=== PATIENT | female | born 1980 | race Caucasian/White ===

== ENCOUNTER 2017-04-26 20:24 | Inpatient (IN) | payer OTHER ==
[~2017-04-26] VITALS: Ht 152.4 cm; Wt 94.0 kg
[~2017-04-26 20:24] MED LIST: AQUA100OI TOP; BUPR75TA5 PO; CYCL10TA PO; CYCL20CR TD; CYCL5TAB PO; CYMB60CA3 PO; FLEX10TA2 PO; IBUP80TA PO; KEFL250C11 PO; LYRI150C PO; LYRI75CA PO; OMEP20CA3 PO; POLY2.5S OP; PRIL20CA PO; TIZA4CAP PO; TIZA4TAB3 PO; TOPI25TA10 PO; TYLE650T25 PO; ULTR50TA PO; VENL75TA2 PO; VOLT1GEL15 TD; VOLT1GEL2 TD; ZIPS25CA PO; ZOLO50TA PO
[2017-04-26 22:58] LABS: BASO % 0.2 % (0.0-1.0); EOS # 0.2 K/mm3 (0.0-0.50); EOS % 1.5 % (0.0-3.0); LARGE UNSTAINED CELL # 0.2 K/mm3 (0.0-0.4); LARGE UNSTAINED CELL % 1.1 % (0.0-4.0); LYMPH # 1.8 K/mm3 (1.5-4.5); LYMPH % 10.8 % (24.0-44.0); MEAN CORPUSCULAR HEMOGLOBIN 28.5 pg (27.0-33.0); MEAN CORPUSCULAR HGB CONC 34.3 g/dl (32.0-36.5); MEAN CORPUSCULAR VOLUME 83.2 fl (80.0-96.0); MONO # 0.9 K/mm3 (0.0-0.8); MONO % 5.9 % (0.0-5.0); NEUTROPHILS # 11.7 K/mm3 (1.8-7.7); NEUTROPHILS % 80.5 % (36.0-66.0); PLATELET COUNT, AUTOMATED 306 k/mm3 (150-450); RED CELL DISTRIBUTION WIDTH 13.5 % (11.5-14.5); WHITE BLOOD COUNT 14.6 K/mm3 (4.0-10.0)
[2017-04-26 23:12] LABS: CONTROL LINE HCG INT CTR LINE PRESENT
[2017-04-26 23:16] LABS: ANION GAP 7 MEQ/L (8-16); BLOOD UREA NITROGEN 10 MG/DL (7-18); CALCIUM LEVEL 8.8 MG/DL (8.5-10.1); CARBON DIOXIDE LEVEL 27 MEQ/L (21-32); CHLORIDE LEVEL 107 MEQ/L (98-107); CREATININE FOR GFR 0.94 MG/DL (0.55-1.02); GLOMERULAR FILTRATION RATE > 60.0 (>60); GLUCOSE, FASTING 119 MG/DL (70-105); POTASSIUM SERUM 3.2 MEQ/L (3.5-5.1); SODIUM LEVEL 141 MEQ/L (136-145)
[2017-04-27] MEDS ORDERED: ceFAZolin SOD 1 GM in D5W MINI-BAG PLUS 50 ML IV ONE (00:30)
[2017-04-27] MEDS ORDERED: metroNIDAZOLE 500 MG in APPROPRIATE DILUENT 1 EA IV ONE (00:30)
[2017-04-27] MEDS ORDERED: VENL100T PO (01:07)
[2017-04-27] MEDS ORDERED: VITA1CAP40 PO (01:08)
[2017-04-27] MEDS ORDERED: MORPHINE 2 MG/ML 1ML SYRINGE IV PRN (02:15)
[2017-04-27] MEDS ORDERED: ACETAMINOPHEN TAB 650MG DOSE (2X325MG) PO PRN (02:15)
[2017-04-27 03:00] VITALS: BP 140/79
[2017-04-27] MEDS ORDERED: VANCOMYCIN HCL 1,000 MG, VIAL MATE ADAPTER 1 EACH in D5W 250 ML IV ONE (03:00)
[2017-04-27] MEDS ORDERED: POTASSIUM CHLORIDE 10 MEQ SR TABLET PO ONE ×2 (03:15→10:00)
[2017-04-27] MEDS: NS 1,000 ML IV SCH ×3 (03:21→22:46)
--- NOTE | 2017-04-27 03:49 | HPEPDOC ---
General Date of Admission Apr 27, 2017 at 02:03 Primary Care Physician: SAÚL RAMOS PA-C Attending Physician: DMITRIY PEÑALOZA MD Chief Complaint The patient is a 37-year-old female admitted with a reason for visit of Sialadenitis. Source: Patient Exam Limitations: No limitations Timing/Duration: 24 hours Severity: Severe Associated Symptoms: Nausea, Shortness of breath History of Present Illness 37-year-old female, history of depression, fibromyalgia and no other past medical or surgical history presented with facial swelling. This morning, patient had acute onset orofacial swelling. She denies any trauma sick contact. Swelling is present at around Mouth and lower part of the nose within past 6-7 hours and swelling in the angle of the neck Home Medications Scheduled Cyclobenzaprine HCl (Cyclobenzaprine HCl) 10 Mg Tab, 10 MG PO DAILY, (Reported) Ergocalciferol (Vitamin D) 50,000 Unit Cap, 50,000 UNIT PO ASDIRECTED, (Reported ) W - Wednesday Afternoons Omeprazole (Omeprazole) 20 Mg Cap, 20 MG PO BID, (Reported) Pregabalin (Lyrica) 150 Mg Cap, 150 MG PO TID, (Reported) Venlafaxine Hydrochloride (Venlafaxine HCl) 100 Mg Tab, 100 MG PO BID, (Reported ) Allergies Coded Allergies: No Known Drug Allergy (Verified Allergy, Unknown, 02/05/13) Past Medical History Medical History Depression,. Fibromyalgia Surgical History None Family History Significant Family History: No pertinent family hx Social History * Smoker: Denies Alcohol: Denies Drugs: denies Recent Travel/Sick Contacts: Denies: Recent travel, Recent sick contacts Psychosocial History: Depression Review of Symptoms Constitutional: Denies: Chills, Fever, Night Sweats Eyes: Denies: Pain, Vision change ENT: Reports: Sinus Congestion, Post Nasal Drip, Other Symptoms (Facial swelling along with purulent discharge), Denies: Head Aches, Ear Pain, Dysphagia Skin: Denies: Rash, Lesions, Breakdown Pulmonary: Reports: Cough, Denies: Dyspnea Cardiovascular: Denies: Chest Pain, Palpitations, Orthopnea, Paroxysmal Noc. Dyspnea, Lt Headedness Gastrointestinal: Denies: Nausea, Vomiting, Abdominal Pain, Diarrhea Genitourinary: Denies: Dysuria, Frequency, Incontinence, Retention Hematologic: Denies: Bruising, Bleeding Excessively Musculoskeletal: Denies: Neck Pain, Back Pain, Joint Pain, Muscle Pain, Spasms Neurological: Denies: Weakness, Numbness, Change in speech, Confusion Psych: Reports: Mood Normal, Denies: Depression, Memory Issues Physical Examination General Exam: Positive: Alert Eye Exam: Positive: PERRLA, Conjunctiva & lids normal, EOMI, Negative: Sclera icteric ENT Exam: Positive: Atraumatic, Mucous membr. moist/pink, Other ENT (facial swelling parotid gland enlargement . Purulent discharge) Neck Exam: Positive: Supple, Negative: JVD, thyromegaly Chest Exam: Positive: Clear to auscultation, Normal air movement Heart Exam: Positive: Rate Normal, Regular Rhythm, Normal S1, Normal S2, Negative: Murmurs, Rubs Telemetry: Positive: No significant arrhythmia Abdomen Exam: Positive: Normal bowel sounds, Soft, Negative: Tenderness, Hepatospenomegaly Extremity Exam: Positive: Normal pulses, Negative: Clubbing, Cyanosis, Edema Skin Exam: Positive: Nl turgor and temperature, Negative: Breakdown, Lesion Neuro Exam: Positive: Cranial Nerves 3-12 NL, Reflexes 2+ Psych Exam: Positive: Mental status NL, Mood NL, Oriented x 3 Vital Signs Vital Signs Date Time Temp Pulse Resp B/P (MAP) Pulse Ox O2 Delivery O2 Flow Rate FiO2 04/27/17 02:31 98.9 100 20 130/73 (92) 100 Laboratory Data Labs 24H Laboratory Tests 2 04/26/17 22:48: White Blood Count 14.6H, Red Blood Count 4.60, Hemoglobin 13.1, Hematocrit 38.2 , Mean Corpuscular Volume 83.2, Mean Corpuscular Hemoglobin 28.5, Mean Corpuscular Hemoglobin Concent 34.3, Red Cell Distribution Width 13.5, Platelet Count 306, Neutrophils (%) (Auto) 80.5H, Lymphocytes (%) (Auto) 10.8L, Monocytes (%) (Auto) 5.9H, Eosinophils (%) (Auto) 1.5, Basophils (%) (Auto) 0.2 , Neutrophils # (Auto) 11.7H, Lymphocytes # (Auto) 1.8, Monocytes # (Auto) 0.9H , Eosinophils # (Auto) 0.2, Basophils # (Auto) 0.0, Large Unclassified Cells % 1.1, Large Unclassified Cells # 0.2, Anion Gap 7L, Glomerular Filtration Rate > 60.0, Blood Urea Nitrogen 10, Creatinine 0.94, Sodium Level 141, Potassium Level 3.2L, Chloride Level 107, Carbon Dioxide Level 27, Calcium Level 8.8, C- Reactive Protein, Quantitative 4.57H, Human Chorionic Gonadotropin, Qual NEGATIVE CBC/BMP Laboratory Tests 04/26/17 22:48 Red Blood Count 4.60, Mean Corpuscular Volume 83.2, Mean Corpuscular Hemoglobin 28.5, Mean Corpuscular Hemoglobin Concent 34.3, Red Cell Distribution Width 13.5 , Neutrophils (%) (Auto) 80.5 H, Lymphocytes (%) (Auto) 10.8 L, Monocytes (%) ( Auto) 5.9 H, Eosinophils (%) (Auto) 1.5, Basophils (%) (Auto) 0.2, Neutrophils # (Auto) 11.7 H, Lymphocytes # (Auto) 1.8, Monocytes # (Auto) 0.9 H, Eosinophils # (Auto) 0.2, Basophils # (Auto) 0.0, Calcium Level 8.8 Microbiology Microbiology 04/26/17 Blood Culture, Received Pending 04/26/17 Blood Culture, Received Pending Assessment/Plan 37-year-old female with the history of depression and fibromyalgia presented with facial swelling of sudden onset Problems (1) Hypokalemia Status: Resolved Problem Text: Repleted with oral potassium. Potassium was 3.2 (2) Sialadenitis Status: Acute Problem Text: Temperature 99.2, WBC 14.6, CRP 4.57 As started IV meropenem and vancomycin (3) Depressed Problem Text: Continue with Effexor Plan / VTE VTE Prophylaxis Ordered?: Yes Plan IVF: Initiate Diet: Continue Current Activity: Continue Current Anticipated Discharge: Home ANJU LEWIS MD Apr 27, 2017 03:49
--- NOTE | 2017-04-27 04:06 | PHACANCOPD ---
PHARMACY VANCOMYCIN DOSING Pt Demographics Demographics Patient Age:37 , Weight:95.800 , Gender: female Adjusted Body Weight Date: 04/27/17, Adjusted Body Weight: [65.62] Kg Vancomycin Vancomycin indication: SIALADENITIS Vancomycin Target Ranges: 15-20 mcg/ml Vancomycin Load Y/N: No Load Dose Date Time Vancomycin Load Dose: Date: Time: Vancomycin Dose Date: 04/27/17. Current Vancomycin Dose: [1 GM@03,THEN 1 GM Q12H@1000] Intermittent Dosing?: No Labs Labs Laboratory Tests 04/26/17 22:48 Red Blood Count 4.60, Mean Corpuscular Volume 83.2, Mean Corpuscular Hemoglobin 28.5, Mean Corpuscular Hemoglobin Concent 34.3, Red Cell Distribution Width 13.5 , Neutrophils (%) (Auto) 80.5 H, Lymphocytes (%) (Auto) 10.8 L, Monocytes (%) ( Auto) 5.9 H, Eosinophils (%) (Auto) 1.5, Basophils (%) (Auto) 0.2, Neutrophils # (Auto) 11.7 H, Lymphocytes # (Auto) 1.8, Monocytes # (Auto) 0.9 H, Eosinophils # (Auto) 0.2, Basophils # (Auto) 0.0, Calcium Level 8.8 Micro Microbiology 04/26/17 Blood Culture, Received Pending 04/26/17 Blood Culture, Received Pending Creatinine Clearance Date:04/27/17. Creatinine Clearance: [85.7].CALCULATED Pending Labs Vancomycin trough due 04/28@0900 Assessment and Plan Maintaining Current Dose?: Yes Reason for dose change: No Dose Change Pharmacist Note Pharmacist Note Date: 04/27/17. Pharmacist note:37YOF -WT:95.8KG(ABW=65.62)SCR=0.94; CRCL=85.7 CALCULATED: ADMITTED W/SIALADENITIS being treated w/PIP/TAZO 3.375 gm [id number] amd Vancomycin per consult: Vancomycin 1 GM administered @0300,then will; dose at 1 GM iv q12H @1000.First trough to be drawn prior to the 4th dose(04/28@0900) Will continue to follow levels and labs. IHSAN MARIE PHARMACY Apr 27, 2017 04:06
[2017-04-27] MEDS: PIPERACILLIN/TAZOBACTAM SOD 3.375 GM in D5W MINI-BAG PLUS 50 ML IV SCH ×2 (05:38→09:27)
[2017-04-27 06:00] VITALS: BP 133/70
--- NOTE | 2017-04-27 06:47 | REPUSA ---
CT of the facial bones without contrast Clinical history: Possible sialolith? Technique: Multiple axial CT images were obtained through the facial bones and paranasal sinuses util izing 3 mm axial slices without administration of contrast. Coronal and sagittal reconstructions were also obtained. Findings: The visualized paranasal sinuses are clear. The osteomeatal complexes are patent bilaterall y. The nasal septum is midline. The visualized mastoid air cells are clear. The osseous structures do not demonstrate any acute abnormalities. The superficial soft tissues are within normal limits. Impression: Unremarkable CT examination of the facial bones and paranasal sinuses. No discrete eviden ce of inflammation or a sialolith.
[2017-04-27 08:54] LABS: ALBUMIN 3.3 GM/DL (3.2-5.2); ALBUMIN/GLOBULIN RATIO 1.06 (1.00-1.93); ALKALINE PHOSPHATASE 101 U/L (45-117); ALT/SGPT 54 U/L (12-78); ANION GAP 7 MEQ/L (8-16); AST/SGOT 66 U/L (15-37); BILIRUBIN,TOTAL 1.1 MG/DL (0.2-1.0); BLOOD UREA NITROGEN 8 MG/DL (7-18); CARBON DIOXIDE LEVEL 25 MEQ/L (21-32); CHLORIDE LEVEL 109 MEQ/L (98-107); GLOMERULAR FILTRATION RATE > 60.0 (>60); GLUCOSE, FASTING 91 MG/DL (70-105); MAGNESIUM LEVEL 2.4 MG/DL (1.8-2.4); POTASSIUM SERUM 3.3 MEQ/L (3.5-5.1); SODIUM LEVEL 141 MEQ/L (136-145); TOTAL PROTEIN 6.4 GM/DL (6.4-8.2)
[2017-04-27 08:58] LABS: BASO % 0.2 % (0.0-1.0); EOS % 0.5 % (0.0-3.0); LARGE UNSTAINED CELL # 0.2 K/mm3 (0.0-0.4); LARGE UNSTAINED CELL % 1.7 % (0.0-4.0); LYMPH % 20.8 % (24.0-44.0); MEAN CORPUSCULAR HEMOGLOBIN 28.9 pg (27.0-33.0); MEAN CORPUSCULAR HGB CONC 34.6 g/dl (32.0-36.5); MEAN CORPUSCULAR VOLUME 83.5 fl (80.0-96.0); MONO # 0.6 K/mm3 (0.0-0.8); MONO % 6.2 % (0.0-5.0); NEUTROPHILS # 6.4 K/mm3 (1.8-7.7); NEUTROPHILS % 70.6 % (36.0-66.0); PLATELET COUNT, AUTOMATED 247 k/mm3 (150-450); RED CELL DISTRIBUTION WIDTH 13.6 % (11.5-14.5)
[2017-04-27] MEDS ORDERED: VITAMIN D 50,000 UNITS CAPSULE (ERGOCALCIFEROL 1.25MG) PO SCH (09:00)
[2017-04-27] MEDS: VENLAFAXINE 25 MG TAB PO SCH ×2 (09:25→21:00)
[2017-04-27] MEDS: PREGABALIN 75 MG CAP(LYRICA) PO SCH ×3 (09:25→22:46)
[2017-04-27] MEDS: ENOXAPARIN 40 MG/0.4 ML SYRINGE (J1650) SC SCH (09:26)
[2017-04-27] MEDS: OMEPRAZOLE 20 MG CAP PO SCH ×2 (09:26→22:46)
[2017-04-27] MEDS: CYCLOBENZAPRINE 10 MG TAB PO SCH (09:26)
[2017-04-27] MEDS ORDERED: VANCOMYCIN HCL 1,000 MG, VIAL MATE ADAPTER 1 EACH in D5W 250 ML IV SCH (10:00)
[2017-04-27] MEDS ORDERED: VARIBAR NECTAR 40% w/v 240ML SUSP BTL As Ordered ONE (10:11)
[2017-04-27] MEDS ORDERED: VARIBAR PUDDING 40% w/v 230ML TUBE As Ordered ONE (10:11)
[2017-04-27] MEDS ORDERED: E-Z-PAQUE 96% w/w SUSP 176GM BTL As Ordered ONE (10:11)
--- NOTE | 2017-04-27 12:57 | IPNPDOC ---
Text Note Date of Service The patient was seen on 04/27/17. NOTE Subjective: Patient is a 37 year old female with a PMHx of Depression with manic episodes, Fibromyalgia, Vitamin D deficiency and GERD who presented to the ER with complaints of facial swelling and skin changes. She notes that the changes have occurred over the last 1-2 days. She was evaluated by the cream maker and admitted under the hospitalist service for facial cellulitis and sialadenitis. Patient was seen and examined at the bedside. Currently she denies any pain, difficulty breathing of shortness of breath. She had mentioned that yesterday she has had some difficulty swallowing, but denies that currently. Objective: Vitals (See below) General: Lying in bed, no acute distress, irritable, AAOx3 HEENT: Swelling of the right and left (R>L) submandibular and parotid glands, no stridor CVS: RRR, +S1S2 Lungs: Fair air entry b/l, -w/r/r Abdomen: Soft, ND, NT, +BSx4 Extremities: +PPx4, - Edema, - Calf tenderness Assessment and plan: 1. Facial swelling and rash - likely 2/2 facial cellulitis and sialadenitis - Reported to have occurred over last 2 days, no reported fevers at home - Physical currently reveals facial swelling, tenderness, warmth and skin changes which appear to have occurred longer than 2 days - Leukocytosis of 14; improved - Blood cultures pending - CT Maxillofacial 04/26: unremarkable CT examination of facial bones and paranasal sinuses, no discrete evidence of inflammation of sialolith - Discussed case with Dr. Mancia (Infectious disease) and Dr. Grace (ENT) - Will keep on contact isolation at this time - Has been started on Morphine; will reduce frequency and dosage - c/w Vancomycin and Zosyn (Day #1) 2. Hypokalemia - Again low despite supplementation - Will replete today 3. Depression with clyde - Currently appears agitated and may have some level of clyde at this time - c/w Venlafaxine - Will get a psychiatry evaluation 4. GERD - c/w omeprazole 5. DVT prophylaxis - c/w Lovenox VS,Fishbone, I+O VS, Fishbone, I+O Laboratory Tests 04/26/17 22:48 Red Blood Count 4.60, Mean Corpuscular Volume 83.2, Mean Corpuscular Hemoglobin 28.5, Mean Corpuscular Hemoglobin Concent 34.3, Red Cell Distribution Width 13.5 , Neutrophils (%) (Auto) 80.5 H, Lymphocytes (%) (Auto) 10.8 L, Monocytes (%) ( Auto) 5.9 H, Eosinophils (%) (Auto) 1.5, Basophils (%) (Auto) 0.2, Neutrophils # (Auto) 11.7 H, Lymphocytes # (Auto) 1.8, Monocytes # (Auto) 0.9 H, Eosinophils # (Auto) 0.2, Basophils # (Auto) 0.0, Calcium Level 8.8 04/27/17 08:18 Red Blood Count 4.24, Mean Corpuscular Volume 83.5, Mean Corpuscular Hemoglobin 28.9, Mean Corpuscular Hemoglobin Concent 34.6, Red Cell Distribution Width 13.6 , Neutrophils (%) (Auto) 70.6 H, Lymphocytes (%) (Auto) 20.8 L, Monocytes (%) ( Auto) 6.2 H, Eosinophils (%) (Auto) 0.5, Basophils (%) (Auto) 0.2, Neutrophils # (Auto) 6.4, Lymphocytes # (Auto) 2.0, Monocytes # (Auto) 0.6, Eosinophils # ( Auto) 0.0, Basophils # (Auto) 0.0, Calcium Level 8.0 L, Aspartate Amino Transf ( AST/SGOT) 66 H, Alanine Aminotransferase (ALT/SGPT) 54, Alkaline Phosphatase 101 , Total Bilirubin 1.1 H, Total Protein 6.4, Albumin 3.3 Vital Signs Date Time Temp Pulse Resp B/P (MAP) Pulse Ox O2 Delivery O2 Flow Rate FiO2 04/27/17 06:00 97.3 92 19 133/70 (91) 96 Room Air I&O- Last 24 Hours up to 6 AM 04/27/17 06:00 Intake Total 1040 ml Output Total 0 ml Balance 1040 ml DMITRIY PEÑALOZA MD Apr 27, 2017 12:41
[2017-04-27 14:00] VITALS: BP 156/92
[2017-04-27] MEDS ORDERED: PIPERACILLIN/TAZOBACTAM SOD 3.375 GM in D5W MINI-BAG PLUS 50 ML IV SCH (17:00)
--- NOTE | 2017-04-27 17:10 | REP ---
COOKIE SWALLOW: The procedure was performed by DORIS Trevino under the direct supervision of Dr. Unger along with Filomena Rodriguez from speech pathology. Barium of various consistencies were given to the patient. These consisted of nectar, pudding, solid and thin. The swallowing mechanism was observed under fluoroscopy. No penetration was observed at the time of the procedure. Complete report from speech pathology to follow. Reviewed by DORIS Villagomez 04/28/2017 02:37 PEdited and Signed by Shay Unger MD 04/28/2017 03:25 P
--- NOTE | 2017-04-27 18:59 | CR ---
DATE OF ADMISSION: 04/27/2017 REASON FOR CONSULTATION: Facial swelling. HISTORY OF PRESENT ILLNESS: Isela Butler is a 37-year-old woman. She was admitted through the emergency room last night with a diagnosis of sialadenitis. The patient states that she has noticed right facial swelling since Wednesday. She says that area of her right cheek and right buccal mucosa feels "tight." The patient is answering questions at this time, but she is moving uncontrollably in bed and appears to be suffering from clyde. She is keeping her answers short and when she does expand on her answers, the response is a little bit tangential. Her mother is also at the bedside and does provide some history. The patient states that when she noted the swelling of her face on Wednesday, she put hydrogen peroxide in her mouth and feels that this is what caused her to have a rash around her mouth. She did not answer whether or not she has been having a fever or chills at home. She says that she knows she has an ongoing dental infection which she was supposed to see a dentist for and she never did this. She states that her diet consists mainly of junk food. She cannot answer whether or not she has been maintaining hydration or eating adequately recently. Her mother states that sometimes the patient goes 2 days or so without sleeping, and at this point, the patient does appear to be very revved up or manic. The patient does admit that she has depression, and she says she does see a healthcare provider regularly for that and takes her medications as ordered. PAST MEDICAL HISTORY: Depression and fibromyalgia. PAST SURGICAL HISTORY: None. MEDICATIONS: Currently she is on: - cyclobenzaprine - omeprazole - Lyrica - venlafaxine MEDICATION ALLERGIES: None. SOCIAL HISTORY: The patient states that she has been a smoker for 21 years. She denies any alcohol use. She denies any illicit drug use. FAMILY HISTORY: Noncontributory. REVIEW OF SYSTEMS: As above. PHYSICAL EXAM: Vital signs: Temperature 98, pulse 87, blood pressure 156/92. General: The patient is moving back and forth in the bed uncontrollably. She is not making eye contact. She appears distracted. However, she appears to be in no acute distress. Ears: The external ears are normal. The ear canals are normal. Tympanic membranes are intact. There is no middle ear fluid. The mastoids are nontender. Face: There is a severe impetigo-like rash in the perioral area and on the chin. There is some purulent looking exudate at the oral commissure on the right. Nose: There is mild irritation of the nasal mucosa. No septal perforation. No pus, polyps or lesions on either side. Oral cavity/oropharynx: There is no oral mucosa lesions, no oropharyngeal lesions. The patient has a tongue piercing in place. There is a significantly carious right mandibular molar, which is tender to palpation. Salivary glands: Neither the parotid or submandibular glands appear enlarged. They are nontender by palpation. Neck: Supple. No lymphadenopathy. No masses. No tenderness. CT scan images were reviewed. There is a lot of dental artifact on the CT scan images. I do not see a jagdeep apical abscess, but it is hard to tell from the CT scan. I do not see any sialoadenitis on the exam. No middle ear or mastoid problems. The sinuses are clear. LABORATORY: Today, white blood cell count is 9, hemoglobin is 12.3, platelets are 247. Blood cultures are pending. ASSESSMENT AND PLAN: Isela Butler is a 37-year-old woman with some mild facial cellulitis. She has some pretty significant impetigo skin infection around the mouth. She also has a carious tooth which is likely infected. There is no surgical intervention recommended at this point. The infectious disease doctor is at the bedside and will make recommendations on antibiotics. 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 A psychiatric consult is pending.
--- NOTE | 2017-04-27 21:11 | CR ---
DATE OF CONSULTATION: 04/27/2017 CHIEF COMPLAINT: Feels anxious. SUBJECTIVE: She is 37 years old. She has a boyfriend, they have been together for the last 5 years. She has a history of emotional difficulties, says has been diagnosed with bipolar disorder and is seen at a clinic at [facility], sees a clinician there, who prescribes her venlafaxine 100 mg twice a day. She also sees a therapist there. She says that she goes regularly. I have been asked to see her as she has been noted to have an infection of the mouth, has been diagnosed with sialadenitis, as well as impetigo of the skin around the mouth, which is infected. She has been noted to be anxious and restless. There is some concern that she may be manic. Was thought to appear somewhat distracted as well when she was first seen by clinicians here. I saw her last year for consultation and at that time she was thought to be anxious and also had delirium, had come in convinced that she had been infected and that she had scabies or that there were parasites that had infested her, which was not thought to be entirely accurate. She was itching at that time, convinced that she had scabies in her hair and that her comb was getting stuck there. Had put some "home remedy" with mayonnaise and covered it with a shower cap and then had used cream further to that. At that time, it was suggested that she followup with outpatient psychiatry at [facility]. She was on Effexor at that time at 75 mg twice a day and apparently Topamax had been added as well. The patient says that she did followup and has continued to do so. She says that she noticed difficulties with her mouth only a few days ago and acknowledges that she was picking at it as well when it was thought to be infected. Says tends to pick her toes and fingers when anxious as well. There is some indication that she had possibly sprayed some hydrogen peroxide in her mouth when she had noticed the swelling on her face a few days ago, and felt that this caused her to have a rash around her mouth. There is apparently an ongoing dental infection. She is thought to have an infected caries teeth and was supposed to see a dentist but did not do so. The initial evaluation also suggests her mother indicating that there are times when the patient goes without sleep for a couple of nights. She says that she has felt anxious, that she has been doing well overall, but has had periods in the past when she has felt quite irritable, restless with a diminishing of the need for sleep, an increase in racing thoughts. Says at times it goes on for a few days at a time. Denies any suicidal thoughts or intents. Denies any auditory or visual hallucinations. Denies any recent drug use, though urine toxicology was positive for opiates, as well as cocaine. PAST PSYCHIATRIC HISTORY: As indicated above. Has been diagnosed with bipolar disorder. She suggests that she has been treated for that. She sees clinicians at [facility], including a therapist. She says that she takes her medicines and is currently on venlafaxine at 100 mg twice a day. She is also on Lyrica, unclear why she is on that. She has been seen by Infectious Disease and has been put on antibiotics. Denies any suicidal thoughts or intents. Denies any admission to an inpatient psychiatric unit. BACKGROUND HISTORY: Please refer to the previous summary. She and her boyfriend have been together for about 5 years. She has three children, minimal contact with two of them, none with the third, when she was seen last year. She attended special education classes and graduated. Has had difficulties with reading and comprehension, but none with math. 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 MENTAL STATUS EXAMINATION: She is lying in bed. She is in hospital clothes. She is cooperative. Appears somewhat restless and fidgety, moving her limbs periodically in a restless manner. No psychomotor retardation. She has swelling of the face and a rash, which is infected, around her mouth. She is coherent. Answers questions briefly and logically. No formal thought disorder. Denies any suicidal thoughts or intents. Affect is limited in range, partly because of the swelling. Denies any thoughts of harming herself or anyone else. Does not appear to be internally preoccupied at present. No overt delusional ideations elicited. No fluctuation of consciousness. Her sensorium is clear. Able to shift and maintain attention adequately. Intellect is average. She is oriented to time, place, and person. Can spell the word "house" forwards and backwards. Can recall two out of three objects after 5 minutes. Judgment is good. Insight is fair. ASSESSMENT: 1. Other specified anxiety disorder. 2. Bipolar disorder by history. She has come in with impetigo, skin infection around the mouth. Has been picking at her skin, fingers as well. Says tends to do so when anxious. The possibility of hypomania also needs to be considered. She has been noted to be anxious and is currently coherent. She is alert and oriented. Her sensory is essentially clear. She acknowledges picking at her skin off and on over the last few months, and is also thought to have an infected tooth. No convincing evidence of psychosis at present. Disorder of impulse control cannot be completely ruled out, complicating the current picture. RECOMMENDATIONS: I suggest decreasing the Effexor to 150 mg daily. This is to help improve mood stability, antidepressants can sometimes exacerbate moods being unstable, in the presence of a history of bipolar disorder. I would also suggest empirically starting the patient on Abilify 5 mg at night to help with stabilizing her mood and to help improve impulse control, such as when it comes to picking her skin. Optimize the rest of the care. Avoid using benzodiazepines if possible to help with anxiety. The patient has had difficulties with substance misuse in the past. She has an outpatient psychiatry followup at [facility] and she can continue following up with them. Thank you for the consult. If you have any questions, please call. The assessment took 30 minutes.
[2017-04-27 22:00] VITALS: BP 148/80
--- NOTE | 2017-04-27 22:00 | CR ---
DATE OF CONSULTATION: 04/27/2017 Asked to consult by hospitalist for evaluation of facial cellulitis. HISTORY OF PRESENT ILLNESS: Isela is a 37-year-old female who was admitted with facial cellulitis and redness and swelling. She came to the emergency room with complaints of facial swelling. She had been using Clearasil on her face and bleach. The patient is very agitated, moving, cannot sit still and give me a good history. The mother is at the bedside and she states that she thinks she uses drugs when she is with her boyfriend Gonzales, they have been together for 5 years. Whenever she is with her boyfriend she acts really bizarre. She was admitted in 06/19/2016 for a similar situation when she was convinced she had scabies and had treated herself with permethrin and had bleach bath. She asked her three kids to get her some bleach the other day to do the wash but she used it probably on her face. She did not have a previous history of herpes. She had no fever or chills. The patient denies adamantly of using drugs but she states that she thinks that her family thinks she is crazy. She has a past medical history significant for fibromyalgia, chronic low back pain, left foot cyst, gastroesophageal reflux disease, depression and sees a psychiatrist at [facility]. MEDICATIONS: - morphine 1 mg IV every 4 hours - vancomycin 1 gram IV every 12 hours - Zosyn 3.375 grams IV every 8 hours - Lovenox 40 mg subcutaneous daily - Flexeril 10 mg by mouth daily - vitamin D 50,000 units daily - omeprazole 20 mg by mouth twice a day - Lyrica 150 mg by mouth three times a day - Effexor 100 mg by mouth twice a day - Tylenol as needed LABORATORY DATA: White count yesterday was 14.6, today was 9, hemoglobin 12.3, hematocrit 35.4, platelets 247. Sodium 141, potassium 3.3, chloride 109, bicarbonate 25, BUN 8, creatinine 0.8, glucose 91, calcium 8, magnesium 2.4, bilirubin 1.1, AST 66, ALT 54, alkaline phosphatase 101, total protein 6.4, albumin 3.3. Blood cultures two sets were done on 04/26/2017, were negative. On 04/27/2017, methicillin-resistant Staphylococcus aureus (MRSA) screen is ordered. IMAGING STUDY: Maxillofacial CT does not show any evidence of inflammation or sialolithiasis. The nasal septum is midline. Nasal sinuses are clear. ALLERGIES: No known drug allergies. PHYSICAL EXAMINATION: T-max yesterday was 99.3, currently 98, pulse 87, respirations 19, blood pressure 156/92, oxygen saturation 96% on room air. HEART: Normal S1, S2. No murmurs. LUNGS: Clear. No wheezes, rales, or rhonchi. ABDOMEN: Morbidly obese, soft, nontender. EXTREMITIES: No clubbing, cyanosis or edema. Mild redness of the toes, no rashes. FACE: Has redness around the lips bilaterally with a dry scab bilaterally, erythema especially of the right cheek, left cheek less, there is also papular lesions all around her forehead. NEUROLOGIC EXAM: The patient is alert and oriented times three, but she is not able to sit still, moving all extremities, very jittery with a few myoclonic jerks. SOCIAL HISTORY: She has three kids, all from a different father. She is currently with this boyfriend Gonzales for the past 5 years who does not work. He is black, the mother does not appreciate the fact that they are together. He spends time on the PlayStation and does not have any income. She works at [employer] but on Wednesday she was supposed to show up to work, missed her work, and came back agitated. She also works at [employer]. She has three kids that are in the room who are currently with grandmother. They are 8, 10 and 12 years old. IMPRESSION: 37-year-old female with a previous history of a similar admission when she was convinced she had scabies and had treated herself with permethrin and bleach, came with a skin burn of her neck and arms. The patient admitted on previous admission that she used Denice. The patient has skin chavez from probably bleach with secondary excoriation from digging and superimposed bacterial infection. PLAN: Since there is no evidence of sinusitis or oral abscess, would discontinue Zosyn, continue with vancomycin for a superficial cellulitis. I would use Aquaphor to help with dry skin. I would avoid use of narcotics with her agitation. The patient has a previous history of admitting using Denice.
[2017-04-27] MEDS: VANCOMYCIN HCL 1,000 MG, VIAL MATE ADAPTER 1 EACH in D5W 250 ML IV SCH (22:45)
[2017-04-27] MEDS: AQUAPHOR **100GM** OINT TOP SCH (22:46)
[2017-04-28] MEDS ORDERED: MORPHINE 2 MG/ML 1ML SYRINGE IV PRN (02:15)
[2017-04-28 06:00] VITALS: BP 143/92
[2017-04-28 06:35] LABS: MEAN CORPUSCULAR HEMOGLOBIN 29.2 pg (27.0-33.0); MEAN CORPUSCULAR HGB CONC 34.5 g/dl (32.0-36.5); MEAN CORPUSCULAR VOLUME 84.6 fl (80.0-96.0); RED CELL DISTRIBUTION WIDTH 13.7 % (11.5-14.5)
[2017-04-28 06:50] LABS: ALBUMIN 3.1 GM/DL (3.2-5.2); ALBUMIN/GLOBULIN RATIO 0.89 (1.00-1.93); ALKALINE PHOSPHATASE 98 U/L (45-117); ALT/SGPT 49 U/L (12-78); ANION GAP 8 MEQ/L (8-16); AST/SGOT 50 U/L (15-37); BILIRUBIN,TOTAL 0.6 MG/DL (0.2-1.0); BLOOD UREA NITROGEN 5 MG/DL (7-18); CARBON DIOXIDE LEVEL 21 MEQ/L (21-32); CHLORIDE LEVEL 111 MEQ/L (98-107); CREATININE FOR GFR 0.73 MG/DL (0.55-1.02); GLOMERULAR FILTRATION RATE > 60.0 (>60); GLUCOSE, FASTING 80 MG/DL (70-105); POTASSIUM SERUM 3.7 MEQ/L (3.5-5.1); SODIUM LEVEL 140 MEQ/L (136-145); TOTAL PROTEIN 6.6 GM/DL (6.4-8.2)
[2017-04-28] MEDS ORDERED: VENLAFAXINE 25 MG TAB PO SCH (09:00)
[2017-04-28] MEDS: ENOXAPARIN 40 MG/0.4 ML SYRINGE (J1650) SC SCH (09:14)
[2017-04-28] MEDS: CYCLOBENZAPRINE 10 MG TAB PO SCH (09:14)
[2017-04-28] MEDS: PREGABALIN 75 MG CAP(LYRICA) PO SCH ×3 (09:14→21:52)
[2017-04-28] MEDS: VENLAFAXINE 37.5 MG TAB PO SCH (09:14)
[2017-04-28] MEDS: OMEPRAZOLE 20 MG CAP PO SCH ×2 (09:14→21:52)
[2017-04-28] MEDS: NS 1,000 ML IV SCH (09:15)
[2017-04-28] MEDS: AQUAPHOR **100GM** OINT TOP SCH ×2 (09:15→21:53)
[2017-04-28] MEDS: VANCOMYCIN HCL 1,000 MG, VIAL MATE ADAPTER 1 EACH in D5W 250 ML IV SCH ×3 (10:43→23:28)
[2017-04-28 14:00] VITALS: BP 130/80
--- NOTE | 2017-04-28 15:25 | PHACANCOPD ---
PHARMACY VANCOMYCIN DOSING Pt Demographics Demographics Patient Age:37 , Weight:94.000 , Gender: female Adjusted Body Weight Date: 04/27/17, Adjusted Body Weight: [65.62] Kg Events Past 24 Hours Events Past 24 Hours: NO: Dialysis, Diuretic Therapy, Change in CrCl, Fever, Elevation in WBC, Pending Diagnostics, Pending Procedures, Other Vancomycin Vancomycin indication: SIALADENITIS Vancomycin Target Ranges: 15-20 mcg/ml Vancomycin Load Y/N: No Load Dose Date Time Vancomycin Load Dose: Date: Time: Vancomycin Dose Date: 04/28/17. Current Vancomycin Dose: [1gm IV q8h@15] Date: 04/27/17. Current Vancomycin Dose: [1 GM@03,THEN 1 GM Q12H@1000] Intermittent Dosing?: No Labs Labs Item Value Date Time Creatinine 0.73 MG/DL 04/28/17 0620 White Blood Count 14.6 K/mm3 H 04/26/17 2248 White Blood Count 9.0 K/mm3 04/27/17 0818 White Blood Count 7.0 K/mm3 04/28/17 0620 Vancomycin Level Trough 9.0 UG/ML L 04/28/17 0857 Vital Signs Label Value Date Time Patient Temperature 96.6 degrees F 04/28/17 0600 Temperature Source Temporal 04/28/17 0600 Micro Microbiology 04/26/17 Blood Culture - Preliminary, Resulted No growth after 24 hours . All specim... 04/26/17 Blood Culture - Preliminary, Resulted No growth after 24 hours . All specim... 04/27/17 MRSA Screen, Received Pending 04/27/17 Herpes Virus DNA (PCR), Received Pending 04/27/17 Wound Culture, Received Pending Creatinine Clearance Date:04/27/17. Creatinine Clearance: [85.7].CALCULATED Pending Labs Vancomycin trough due 04/28@0900 Assessment and Plan Maintaining Current Dose?: No Reason for dose change: Trough too low Pharmacist Note Pharmacist Note 04/28: Patient's trough came back at 9 this morning. Due to her trough being low, she was rescheduled for Vancomycin 1gm IV q8h starting at 1500 today. We will continue to monitor and make adjustments as necessary. Date: 04/27/17. Pharmacist note:37YOF -WT:95.8KG(ABW=65.62)SCR=0.94; CRCL=85.7 CALCULATED: ADMITTED W/SIALADENITIS being treated w/PIP/TAZO 3.375 gm [id number] amd Vancomycin per consult: Vancomycin 1 GM administered @0300,then will; dose at 1 GM iv q12H @1000.First trough to be drawn prior to the 4th dose(04/28@0900) Will continue to follow levels and labs. SOPHY MATHIS PHARMACY Apr 28, 2017 15:25
--- NOTE | 2017-04-28 19:28 | IPN ---
DATE: 04/28/2017 Isela seems to be doing better today. The nurse stated that she slept all morning. She still has some twitching movements but otherwise alert and oriented times three. She knew that I was the internal medicine doctor. She states she had a dentist appointment scheduled for tomorrow for a 6-month follow-up. She denies any nausea, vomiting, diarrhea, abdominal pain, fever or chills. She states she has difficulty opening her mouth. She also reports using peroxide on her face because she thought she had pinworms because her boyfriend told her he had pinworms and they had sex. Temperature is 99.3 on admission, currently 97.6. Heart: Normal S1-S2. No murmurs. Lungs clear. No wheezes, rales, or rhonchi. Abdomen morbidly obese, soft, nontender. Extremities no edema. Perioral dryness and scabs with limited range of motion of the mouth due to scabs and dryness. There is some yellowish drainage at the angle of the right mouth. Facial swelling has decreased. Cellulitis of cheeks is improving. LABORATORY DATA: White count is 7, hemoglobin 12.1, hematocrit 35.1, platelets 253. Sodium 140, potassium 3.7, chloride 111, bicarb 21, BUN 5, creatinine 0.73, glucose 80, calcium 8, AST 50, ALT 46, alkaline phos 98, total protein 6.6, albumin 3.1, blood cultures no growth after 24 hours. MRSA screen is pending. Blood cultures pending. Her PCR is pending. IMPRESSION: 1. Facial chavez from hydrogen peroxide with secondary superimposed cellulitis on intravenous (IV) vancomycin doing much better. 2. 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 3. Cocaine use. The patient has a positive urine screen. She denies using any drugs but mother has concerns and patient had bizarre behavior suggestive to withdrawal symptoms from drugs. PLAN: Continue IV vancomycin until tomorrow. She could probably be switched to clindamycin on discharge. Obtain hepatitis C serology and HIV if the patient consent. Involve Patient Family Services (PFS) regarding cocaine use.
--- NOTE | 2017-04-28 21:39 | IPNPDOC ---
Date Seen The patient was seen on 04/28/17. Progress Note Subjective: Patient is a 37 year old female with a PMHx of Depression with manic episodes, Fibromyalgia, Vitamin D deficiency and GERD who presented to the ER with complaints of facial swelling and chavez caused by hydrogen peroxide. She was seen and evaluated at the bedside this morning, she does continue to complain of pain, difficulty opening her jaw, otherwise remainder of her review of systems is negative. Objective: Vitals (See below) General: Lying in bed, no acute distress, irritable, AAOx3 HEENT: She does continue to have swelling on her face, right greater than left, but this is significantly improved from yesterday CVS: Regular rate and rhythm, no murmurs rubs or gallops Lungs: Clear to auscultation bilaterally with no wheezes rales or rhonchi Abdomen: Soft and nondistended, bowel sounds present in all quadrants Extremities: 2+ radial pulse, no swelling or edema noted in the extremities. Assessment and plan: 1. Facial swelling and rash - likely facial cellulitis from chemical burn. - Leukocytosis has resolved - Blood cultures negative after 24 hours -Continue with vancomycin per recommendations from infectious disease 2. Hypokalemia -Resolved 3. Depression with clyde -Not as agitated today, but still acting somewhat manic -Abilify 5 mg by mouth daily at bedtime added per recommendations from psychiatry 4. GERD - c/w omeprazole 5. DVT prophylaxis - c/w Lovenox VS, I&O, 24H, Fishbone Vital Signs/I&O Vital Signs Date Time Temp Pulse Resp B/P (MAP) Pulse Ox O2 Delivery O2 Flow Rate FiO2 04/28/17 14:00 97.6 80 18 130/80 (97) 97 Room Air I&O- Last 24 Hours up to 6 AM 04/28/17 06:00 Intake Total 2949 ml Output Total 1100 ml Balance 1849 ml Laboratory Data 24H LABS Laboratory Tests 2 04/28/17 06:20: Anion Gap 8, Glomerular Filtration Rate > 60.0, Blood Urea Nitrogen 5L, Creatinine 0.73, Sodium Level 140, Potassium Level 3.7, Chloride Level 111H, Carbon Dioxide Level 21, Calcium Level 8.0L, Aspartate Amino Transf (AST/SGOT) 50H, Alanine Aminotransferase (ALT/SGPT) 49, Alkaline Phosphatase 98, Total Bilirubin 0.6, Total Protein 6.6, Albumin 3.1L, Albumin/Globulin Ratio 0.89L 04/28/17 08:57: Vancomycin Level Trough 9.0L CBC/BMP Laboratory Tests 04/28/17 06:20 Red Blood Count 4.15, Mean Corpuscular Volume 84.6, Mean Corpuscular Hemoglobin 29.2, Mean Corpuscular Hemoglobin Concent 34.5, Red Cell Distribution Width 13.7 , Calcium Level 8.0 L, Aspartate Amino Transf (AST/SGOT) 50 H, Alanine Aminotransferase (ALT/SGPT) 49, Alkaline Phosphatase 98, Total Bilirubin 0.6, Total Protein 6.6, Albumin 3.1 L Microbiology Microbiology 04/26/17 Blood Culture - Preliminary, Resulted No growth after 24 hours . All specim... 04/26/17 Blood Culture - Preliminary, Resulted No growth after 24 hours . All specim... 04/27/17 MRSA Screen, Received Pending 04/27/17 Herpes Virus DNA (PCR), Received Pending 04/27/17 Wound Culture, Received Pending GME ATTESTATION GME ATTESTATION My preceptor for this patient encounter was physically present in the building during the encounter and was fully available. As needed, all aspects of the patient interview, examination, medical decision making process, and medical care plan development were reviewed and approved by the preceptor. Preceptor is aware and concurs with the plan as stated in the body of this note and will attest to such by his/her cosignature. DARNELL YODER DO Apr 28, 2017 21:39
[2017-04-28 22:00] VITALS: BP 134/83
[2017-04-29 05:58] LABS: MEAN CORPUSCULAR HEMOGLOBIN 29.8 pg (27.0-33.0); MEAN CORPUSCULAR HGB CONC 35.6 g/dl (32.0-36.5); MEAN CORPUSCULAR VOLUME 83.8 fl (80.0-96.0); RED CELL DISTRIBUTION WIDTH 13.9 % (11.5-14.5); WHITE BLOOD COUNT 5.1 K/mm3 (4.0-10.0)
[2017-04-29 06:00] VITALS: BP 128/83
[2017-04-29 06:30] LABS: ALBUMIN 2.7 GM/DL (3.2-5.2); ALBUMIN/GLOBULIN RATIO 0.73 (1.00-1.93); ALKALINE PHOSPHATASE 91 U/L (45-117); ALT/SGPT 42 U/L (12-78); ANION GAP 7 MEQ/L (8-16); AST/SGOT 25 U/L (15-37); BILIRUBIN,TOTAL 0.4 MG/DL (0.2-1.0); BLOOD UREA NITROGEN 7 MG/DL (7-18); CALCIUM LEVEL 8.6 MG/DL (8.5-10.1); CARBON DIOXIDE LEVEL 26 MEQ/L (21-32); CHLORIDE LEVEL 109 MEQ/L (98-107); CREATININE FOR GFR 0.67 MG/DL (0.55-1.02); GLOMERULAR FILTRATION RATE > 60.0 (>60); GLUCOSE, FASTING 88 MG/DL (70-105); POTASSIUM SERUM 3.4 MEQ/L (3.5-5.1); SODIUM LEVEL 142 MEQ/L (136-145); TOTAL PROTEIN 6.4 GM/DL (6.4-8.2)
[2017-04-29] MEDS ORDERED: POTASSIUM CHLORIDE 10 MEQ SR TABLET PO ONE (06:45)
[2017-04-29] MEDS: VANCOMYCIN HCL 1,000 MG, VIAL MATE ADAPTER 1 EACH in D5W 250 ML IV SCH ×3 (06:46→22:34)
[2017-04-29 06:48] LABS: MAGNESIUM LEVEL 2.2 MG/DL (1.8-2.4)
[2017-04-29 08:17] VITALS: BP 132/80
[2017-04-29] MEDS: OMEPRAZOLE 20 MG CAP PO SCH ×2 (08:53→20:01)
[2017-04-29] MEDS: CYCLOBENZAPRINE 10 MG TAB PO SCH (08:54)
[2017-04-29] MEDS: VENLAFAXINE 37.5 MG TAB PO SCH (08:54)
[2017-04-29] MEDS: ENOXAPARIN 40 MG/0.4 ML SYRINGE (J1650) SC SCH (08:55)
[2017-04-29] MEDS: AQUAPHOR **100GM** OINT TOP SCH ×2 (08:55→20:01)
[2017-04-29] MEDS: PREGABALIN 75 MG CAP(LYRICA) PO SCH ×3 (09:30→20:01)
--- NOTE | 2017-04-29 09:30 | IPN ---
DATE: 04/29/2017 She is on 4 pavilion. Patient appears to have facial cellulitis. Nursing staff and the patient tell me there has been improvement since admission. She denies any problems with swallowing. There does not appear to be any intraoral lesions. Her vital signs have been stable. She is afebrile. Her white count is not elevated. Review of her chemistry showed a potassium today of 3.4, and that looks like she has already been prescribed a oral potassium dose with recheck scheduled for tomorrow with a comprehensive panel already ordered. Her other chronic issues appear to be stable. On examination, again, her vital signs are stable. She is afebrile. Her blood pressure is 132/80. HEENT: She does have what appears to be a larger perioral rash, which extends up over the face in the vicinity of the nasolabial folds. Her oropharynx examination unremarkable. She has mild cervical adenopathy bilaterally. No significant tenderness over the parotids. Her cardiac was regular rate and rhythm. Chest was clear to auscultation. IMPRESSION: 1. Facial cellulitis. Continue vancomycin. 2. Deep venous thrombosis (DVT) prophylaxis addressed. She is on Lovenox. 3. Psychiatric issues. Continues on medications per psychiatry. I did review her cultures. She has an methicillin-resistant Staphylococcus aureus (MRSA) screen pending. There is a wound culture pending, but I am not sure of the value of that. She does have herpes virus DNA PCR pending. In any event, would continue systemic antibiotics for now. If herpes is positive, would begin antiviral therapy, but I cannot rule out a secondary bacterial infection related to same if the DNA testing is positive for herpes. edited: 04/29/2017 1250 tkf [id number]
[2017-04-29 14:00] VITALS: BP 108/62
[2017-04-29 14:02] VITALS: BP 144/80
--- NOTE | 2017-04-29 15:38 | PHACANCOPD ---
PHARMACY VANCOMYCIN DOSING Pt Demographics Demographics Patient Age:37 , Weight:94.000 , Gender: female Adjusted Body Weight Date: 04/27/17, Adjusted Body Weight: [65.62] Kg Vancomycin Vancomycin indication: SIALADENITIS Vancomycin Target Ranges: 15-20 mcg/ml Vancomycin Load Y/N: No Load Dose Date Time Vancomycin Load Dose: Date: Time: Vancomycin Dose Date: 04/28/17. Current Vancomycin Dose: [1gm IV q8h@15] Date: 04/27/17. Current Vancomycin Dose: [1 GM@03,THEN 1 GM Q12H@1000] Intermittent Dosing?: No Labs Micro Microbiology 04/26/17 Blood Culture - Preliminary, Resulted No Growth after 48 hours. All Specime... 04/26/17 Blood Culture - Preliminary, Resulted No Growth after 48 hours. All Specime... 04/27/17 MRSA Screen - Final, Complete 04/27/17 Herpes Virus DNA (PCR), Received Pending 04/27/17 Wound Culture, Received Pending Creatinine Clearance Date:04/27/17. Creatinine Clearance: [85.7].CALCULATED Pending Labs Vancomycin trough due 04/28@0900 Assessment and Plan Maintaining Current Dose?: Yes Reason for dose change: No Dose Change Pharmacist Note Pharmacist Note 04/29: I scheduled a trough level today to ensure that goal trough range was being reached on new regimen. Trough level today came back at 14.6mcg/ml. Scr remains stable. We will continue patient on the current regimen of 1g IV Q8H for the treatment of sialadenitis. We will continue to monitor the patient and draw further troughs if needed. 04/28: Patient's trough came back at 9 this morning. Due to her trough being low, she was rescheduled for Vancomycin 1gm IV q8h starting at 1500 today. We will continue to monitor and make adjustments as necessary. Date: 04/27/17. Pharmacist note:37YOF -WT:95.8KG(ABW=65.62)SCR=0.94; CRCL=85.7 CALCULATED: ADMITTED W/SIALADENITIS being treated w/PIP/TAZO 3.375 gm [id number] amd Vancomycin per consult: Vancomycin 1 GM administered @0300,then will; dose at 1 GM iv q12H @1000.First trough to be drawn prior to the 4th dose(04/28@0900) Will continue to follow levels and labs. GENNY LEE PHARMACY Apr 29, 2017 15:38
[2017-04-29 22:00] VITALS: BP 128/83
[2017-04-30 06:00] VITALS: BP 128/83
[2017-04-30 06:22] LABS: MEAN CORPUSCULAR HGB CONC 33.9 g/dl (32.0-36.5); MEAN CORPUSCULAR VOLUME 85.6 fl (80.0-96.0); RED CELL DISTRIBUTION WIDTH 14.1 % (11.5-14.5); WHITE BLOOD COUNT 5.5 K/mm3 (4.0-10.0)
[2017-04-30] MEDS: VANCOMYCIN HCL 1,000 MG, VIAL MATE ADAPTER 1 EACH in D5W 250 ML IV SCH ×2 (06:42→15:00)
[2017-04-30 07:24] LABS: ALBUMIN 2.9 GM/DL (3.2-5.2); ALBUMIN/GLOBULIN RATIO 0.74 (1.00-1.93); ALKALINE PHOSPHATASE 101 U/L (45-117); ALT/SGPT 40 U/L (12-78); ANION GAP 7 MEQ/L (8-16); AST/SGOT 17 U/L (15-37); BILIRUBIN,TOTAL 0.2 MG/DL (0.2-1.0); BLOOD UREA NITROGEN 11 MG/DL (7-18); CALCIUM LEVEL 8.8 MG/DL (8.5-10.1); CARBON DIOXIDE LEVEL 27 MEQ/L (21-32); CHLORIDE LEVEL 110 MEQ/L (98-107); CREATININE FOR GFR 0.76 MG/DL (0.55-1.02); GLOMERULAR FILTRATION RATE > 60.0 (>60); GLUCOSE, FASTING 99 MG/DL (70-105); SODIUM LEVEL 144 MEQ/L (136-145); TOTAL PROTEIN 6.8 GM/DL (6.4-8.2)
[2017-04-30] MEDS: CYCLOBENZAPRINE 10 MG TAB PO SCH (09:51)
[2017-04-30] MEDS: AQUAPHOR **100GM** OINT TOP SCH (09:51)
[2017-04-30] MEDS: PREGABALIN 75 MG CAP(LYRICA) PO SCH (09:51)
[2017-04-30] MEDS: OMEPRAZOLE 20 MG CAP PO SCH (09:51)
[2017-04-30] MEDS: ENOXAPARIN 40 MG/0.4 ML SYRINGE (J1650) SC SCH (09:51)
[2017-04-30] MEDS: VENLAFAXINE 37.5 MG TAB PO SCH (09:52)
[2017-04-30] MEDS ORDERED: VENL37TA PO (11:32)
[2017-04-30] MEDS ORDERED: AQUA100OI TOP (11:32)
[2017-04-30] MEDS ORDERED: AUGM875T28 PO (11:32)
[2017-04-30] MEDS ORDERED: ARIP5TA PO (11:32)
--- NOTE | 2017-04-30 15:20 | DS.PDOC ---
Discharge Summary General Date of Admission Apr 27, 2017 at 02:03 Date of Discharge 04/30/2017 Discharge Summary PRIMARY CARE PHYSICIAN: JACINTO Rain at the [facility] clinic ATTENDING AT TIME OF DISCHARGE: Dr. Jimenez DISCHARGE DIAGNOS(E)S: 1. Facial chemical chavez with secondary superimposed cellulitis 2. Psychiatric issues, including delusional parasitosis, other specified anxiety disorder, bipolar disorder 3. Polysubstance abuse, positive for opiates and cocaine. Known past history of ecstasy (Denice) use, toxicology regarding this is still pending 4. Morbid obesity with BMI greater than 40 HPI & HOSPITAL COURSE: Ms. murillo is a 37-year-old female who presented to the emergency department with acute onset oral facial swelling. As it turns out she had been washing her face with hydrogen peroxide under the belief that she may have some sort of parasites. She had a similar admission in the hospital in June 2016 when she washed her skin which bleach as well. She was empirically started on vancomycin and Zosyn She was seen and evaluated by Infectious Disease who discontinued the Zosyn, and she received vancomycin for 3 days, and her swelling and erythema of the face continually improved each day, and today the lesions on her face are only limited to the chemical chavez, there is no surrounding erythema or edema. She'll be switched over to Augmentin for 7 days upon discharge. She was seen and evaluated by ENT as well during her hospitalization, they recommended that she be seen by dentist for tooth with significant caries on an outpatient basis, but no additional treatment was necessary from them during this hospitalization. She was also seen and evaluated by psychiatry who recommended decreasing her dose of Effexor to help improve mood stability as antidepressants can sometimes exacerbate unstable moods especially in the presence of bipolar disorder. She was also empirically started on Abilify 5 mg daily at bedtime to help with mood stabilization and help with impulse control (such as when it comes to picking her skin). It was also recommended to avoid the use of opiates and benzodiazepines in this patient. Regarding her polysubstance abuse, patient and family services was consulted, and child protective services was also notified as there is some concern about her being able to adequately parent her 3 school-age children. PHYSICAL EXAMINATION ON DISCHARGE: GENERAL: She is awake and alert, she is much more pleasant to speak with this morning, she is not manic such as she has been in the past few days. HEENT: Chemical chavez are still present at the bilateral corners of the lip, and are beginning to scab over. She also does have some cracking of the skin in that location as well. The surrounding edema and erythema is essentially gone today. CARDIOVASCULAR EXAMINATION: Regular rate and rhythm, with no rubs, gallops, or murmur. RESPIRATORY EXAMINATION: Clear to auscultation bilaterally with no wheezes, rales, or rhonchi. ABDOMINAL EXAMINATION: Soft, nontender, nondistended. Bowel sounds present. EXTREMITIES: No clubbing or edema noted. 2+ pulses in the radial bilaterally. DISPOSITION: Home DISCHARGE INSTRUCTIONS: Follow-up with primary care provider JACINTO Rain at [facility], as well as with her psychiatrist at [facility] as well within 7-10 days. She was encouraged to take the antibiotics as prescribed every day until they're gone. If symptoms return, or if you experience worsening of your symptoms, please call your doctor or return to the emergency department. My preceptor for this patient encounter was physically present in the building during the encounter and was fully available. As needed, all aspects of the patient interview, examination, medical decision making process, and medical care plan development were reviewed and approved by the preceptor. Preceptor is aware and concurs with the plan as stated in the body of this note and will attest to such by his/her cosignature. Vital Signs/I&Os Vital Signs Date Time Temp Pulse Resp B/P (MAP) Pulse Ox O2 Delivery O2 Flow Rate FiO2 04/30/17 06:00 97.7 70 20 128/83 (98) 96 Room Air I&O- Last 24 Hours up to 6 AM 04/30/17 06:00 Intake Total 930 ml Output Total 1300 ml Balance -370 ml Laboratory Data Labs 24H Laboratory Tests 2 04/30/17 05:52: Anion Gap 7L, Glomerular Filtration Rate > 60.0, Blood Urea Nitrogen 11#, Creatinine 0.76, Sodium Level 144, Potassium Level 4.0, Chloride Level 110H, Carbon Dioxide Level 27, Calcium Level 8.8, Aspartate Amino Transf (AST/SGOT) 17 , Alanine Aminotransferase (ALT/SGPT) 40, Alkaline Phosphatase 101, Total Bilirubin 0.2, Total Protein 6.8, Albumin 2.9L, Albumin/Globulin Ratio 0.74L CBC/BMP Laboratory Tests 04/30/17 05:52 Red Blood Count 4.30, Mean Corpuscular Volume 85.6, Mean Corpuscular Hemoglobin 29.0, Mean Corpuscular Hemoglobin Concent 33.9, Red Cell Distribution Width 14.1 , Calcium Level 8.8, Aspartate Amino Transf (AST/SGOT) 17, Alanine Aminotransferase (ALT/SGPT) 40, Alkaline Phosphatase 101, Total Bilirubin 0.2, Total Protein 6.8, Albumin 2.9 L Microbiology Microbiology 04/26/17 Blood Culture - Preliminary, Resulted No Growth after 72 hours. All specime... 04/26/17 Blood Culture - Preliminary, Resulted No Growth after 72 hours. All specime... 04/27/17 MRSA Screen - Final, Complete 04/27/17 Herpes Virus DNA (PCR) - Final, Complete 04/27/17 Wound Culture, Received Pending Discharge Medications Scheduled Amoxicillin/Clavulanate Potas (Augmentin 875-125 mg) 1 Tab Tab, 875 MG PO BID Aripiprazole (Aripiprazole) 5 Mg Tab, 5 MG PO QHS Cyclobenzaprine HCl (Cyclobenzaprine HCl) 10 Mg Tab, 10 MG PO DAILY, (Reported) Emollient Ointment (Aquaphor) 1 Dose/100 Gm Oint, 1 DOSE TOP BID for RASH/ ITCHING Ergocalciferol (Vitamin D) 50,000 Unit Cap, 50,000 UNIT PO ASDIRECTED, (Reported ) 1xW - Wednesday Afternoons Omeprazole (Omeprazole) 20 Mg Cap, 20 MG PO BID, (Reported) Pregabalin (Lyrica) 150 Mg Cap, 150 MG PO TID, (Reported) Venlafaxine HCl (Venlafaxine HCl) 37.5 Mg Tab, 150 MG PO DAILY Allergies Coded Allergies: No Known Drug Allergy (Verified Allergy, Unknown, 02/05/13) DARNELL YODER DO Apr 30, 2017 15:20
--- NOTE | 2017-04-30 15:48 | IPN ---
DATE: 04/30/2017 SUBJECTIVE: Isela has no fever, chills, nausea, vomiting or diarrhea. The facial cellulitis has markedly improved. She is feeling well. She does not have any pain. No fever. LABORATORY DATA: White count is 5.5, hemoglobin 12.5, hematocrit 36.8. Sodium 144, potassium 4, chloride 110, bicarb 27, BUN 11, creatinine 0.7. MICROBIOLOGY: Blood cultures were negative. Herpes PCR was negative. MRSA screen was negative. Wound culture is pending. ASSESSMENT AND PLAN: The patient will be discharged home today. Child protective services (CPS) is involved regarding her cocaine use. Facial cellulitis has markedly improved. She also had self-induced probably contact dermatitis from hydrogen peroxide or Clorox and skin chavez from scrubbing thinking she had pin worms. There is no need to followup with infectious disease. She probably needs psychiatric followup.
[2017-05-07 10:13] LABS: GC Benzoylecgon 290 ng/mL (Cutoff=150); GC Morphine 2367 ng/mL (Cutoff=200); MDMA (ECSTASY) URINE Negative (Cutoff=500)
== END 2017-04-30 16:47 | disposition home or self-care (01) | DRG 383 ==
LOC: M ED 21:40 → M ED INP 04-27 02:03 → M MSPAV 04-27 03:00
PROVIDERS: ADMIT Internal Medicine; ATTEND Hospitalist
DX: L03.211 Cellulitis of face (principal); E55.9 Vitamin D deficiency, unspecified; L01.00 Impetigo, unspecified; E87.6 Hypokalemia; T20.46XA Corrosion of unspecified degree of forehead and cheek, initial encounter; F40.218 Other animal type phobia; F22 Delusional disorders; F11.10 Opioid abuse, uncomplicated; F14.10 Cocaine abuse, uncomplicated; Z79.899 Other long term (current) drug therapy; M79.7 Fibromyalgia; K21.9 Gastro-esophageal reflux disease without esophagitis; F30.9 Manic episode, unspecified; F17.200 Nicotine dependence, unspecified, uncomplicated; K02.9 Dental caries, unspecified

== ENCOUNTER 2018-05-04 19:08 | Emergency (ER) | payer OTHER | END 2018-05-04 20:13 | disposition home or self-care (01) | LOC: M ED 19:08 | DX: S62.346A Nondisplaced fracture of base of fifth metacarpal bone, right hand, initial encounter for closed fracture (principal); W19.XXXA Unspecified fall, initial encounter; Y92.099 Unspecified place in other non-institutional residence as the place of occurrence of the external cause; Y93.9 Activity, unspecified; Y99.9 Unspecified external cause status; M79.7 Fibromyalgia; K58.9 Irritable bowel syndrome, unspecified; K21.9 Gastro-esophageal reflux disease without esophagitis; F41.9 Anxiety disorder, unspecified; F32.9 Major depressive disorder, single episode, unspecified; E55.9 Vitamin D deficiency, unspecified; Z72.0 Tobacco use; Z79.899 Other long term (current) drug therapy | CPT/HCPCS: 73630 ==

== ENCOUNTER 2018-05-07 20:55 | Emergency (ER) | payer OTHER ==
[2018-05-07] MEDS ORDERED: MORPHINE 4 MG/ML 1ML VIAL/SYRINGE (J2270) IV (21:30)
[2018-05-07 21:35] LABS: BASO # 0.1 10^3/uL (0.0-0.2); BASO % 0.4 % (0.0-1.0); EOS # 0.1 10^3/uL (0.0-0.50); EOS % 0.8 % (0.0-3.0); HEMATOCRIT 38.3 % (36.0-47.0); HEMOGLOBIN 12.6 g/dl (12.0-15.5); IMMATURE GRANULOCYTE % 0.4 % (0-3.0); LYMPH # 1.8 10^3/uL (1.5-4.5); LYMPH % 14.8 % (24.0-44.0); MEAN CORPUSCULAR HEMOGLOBIN 27.3 pg (27.0-33.0); MEAN CORPUSCULAR HGB CONC 32.9 g/dl (32.0-36.5); MEAN CORPUSCULAR VOLUME 82.9 fl (80.0-96.0); MONO % 8.1 % (0.0-5.0); NEUTROPHILS % 75.5 % (36.0-66.0); PLATELET COUNT, AUTOMATED 291 10^3/uL (150-450); RED BLOOD COUNT 4.62 10^6/uL (4.00-5.40); RED CELL DISTRIBUTION WIDTH 13.4 % (11.5-14.5)
[2018-05-07] MEDS: NS 1,000 ML IV (21:36)
[2018-05-07] MEDS: ONDANSETRON 4MG/2ML VIAL (J2405) IV (21:36)
[2018-05-07] MEDS: KETOROLAC 30 MG/ML VIAL (J1885) IV (21:37)
[2018-05-07 21:57] LABS: KETONE, URINE AUTO RFX NEGATIVE (NEGATIVE); LEUKOCYTE ESTERASE UR AUTO RFX NEGATIVE (NEGATIVE); MUCUS, URINE RFX SMALL (NEGATIVE); NITRITE, URINE AUTO RFX NEGATIVE (NEGATIVE); RBC, URINE AUTO RFX 5 /HPF (0-3); SPECIFIC GRAVITY UR AUTO RFX 1.014 (1.002-1.035); SQUAM EPITHELIAL CELL UR AURFX 1 /HPF (0-6); WBC, URINE AUTO RFX 0 /HPF (0-3)
[2018-05-07 22:02] LABS: LACTIC ACID SEPSIS PROTOCOL 1.5 MMOL/L (0.4-2.0)
[2018-05-07 22:29] LABS: CONTROL LINE HCG INT CTR LINE PRESENT; HCG, SERUM QUALITATIVE NEGATIVE (NEGATIVE)
[2018-05-07 22:38] LABS: ALBUMIN/GLOBULIN RATIO 0.75 (1.00-1.93); ALKALINE PHOSPHATASE 223 U/L (45-117); ALT/SGPT 208 U/L (12-78); ANION GAP 6 MEQ/L (8-16); AST/SGOT 79 U/L (7-37); BILIRUBIN,DIRECT 0.2 MG/DL (0.0-0.2); BILIRUBIN,TOTAL 0.5 MG/DL (0.2-1.0); BLOOD UREA NITROGEN 5 MG/DL (7-18); CALCIUM LEVEL 8.2 MG/DL (8.5-10.1); CARBON DIOXIDE LEVEL 30 MEQ/L (21-32); CHLORIDE LEVEL 103 MEQ/L (98-107); CK-MB VALUE MASS < 1.0 NG/ML (<3.6); CPK CREATINE PHOSPHOKINASE 42 U/L (26-192); CREATININE FOR GFR 0.72 MG/DL (0.55-1.30); GLOMERULAR FILTRATION RATE > 60.0 (>60); GLUCOSE, FASTING 103 MG/DL (70-100); LIPASE 88 U/L (73-393); MB/CK RELATIVE INDEX 2.38 (< OR =4); POTASSIUM SERUM 3.6 MEQ/L (3.5-5.1); SODIUM LEVEL 139 MEQ/L (136-145); TROPONIN I < 0.02 NG/ML (< 0.10)
[2018-05-08] MEDS: TAMSULOSIN 0.4 MG CAP PO (01:00)
[2018-05-08] MEDS: OXYCODONE/APAP 5MG/325MG(BULK FOR ED) 1 TABLET PO (01:00)
[2018-05-08] MEDS: LevoFLOXacin 750 MG TABLET PO (01:00)
== END 2018-05-08 01:14 | disposition home or self-care (01) ==
LOC: M ED 05-08 01:14
DX: N23 Unspecified renal colic (principal); R94.5 Abnormal results of liver function studies; R00.0 Tachycardia, unspecified; R94.31 Abnormal electrocardiogram [ECG] [EKG]; K21.9 Gastro-esophageal reflux disease without esophagitis; F31.9 Bipolar disorder, unspecified; Z72.0 Tobacco use; Z79.899 Other long term (current) drug therapy
CPT/HCPCS: J2405

== ENCOUNTER → 2018-05-09 | Outpatient (REF) | payer OTHER ==
[2018-05-09 19:30] LABS: ESTIMATED AVERAGE GLUCOSE 103 MG/DL (60-110); HEMOGLOBIN A1c 5.2 %
[2018-05-09 19:49] LABS: ALBUMIN 2.6 GM/DL (3.2-5.2); ALBUMIN/GLOBULIN RATIO 0.74 (1.00-1.93); ALKALINE PHOSPHATASE 234 U/L (45-117); ALT/SGPT 195 U/L (12-78); ANION GAP 6 MEQ/L (8-16); AST/SGOT 96 U/L (7-37); BILIRUBIN,TOTAL 0.5 MG/DL (0.2-1.0); BLOOD UREA NITROGEN 6 MG/DL (7-18); CALCIUM LEVEL 8.3 MG/DL (8.5-10.1); CARBON DIOXIDE LEVEL 31 MEQ/L (21-32); CHLORIDE LEVEL 102 MEQ/L (98-107); CHOLESTEROL LEVEL 147 MG/DL (<200); CHOLESTEROL RISK RATIO 4.741 (<5); CREATININE FOR GFR 0.77 MG/DL (0.55-1.30); GLOMERULAR FILTRATION RATE > 60.0 (>60); GLUCOSE, FASTING 86 MG/DL (70-100); HDL CHOLESTEROL 31 MG/DL (>40); LDL CHOLESTEROL 97.8 MG/DL (<100); NON-HDL-C 116 MG/DL; POTASSIUM SERUM 3.9 MEQ/L (3.5-5.1); SODIUM LEVEL 139 MEQ/L (136-145); TOTAL PROTEIN 6.1 GM/DL (6.4-8.2); TRIGLYCERIDES LEVEL 91 MG/DL (<150)
== END ==
LOC: M SFHCCAPE 07:09
DX: E78.00 Pure hypercholesterolemia, unspecified (principal); R73.09 Other abnormal glucose
CPT/HCPCS: 80053

== ENCOUNTER → 2018-07-21 | Outpatient (REF) | payer OTHER | LOC: M SFHCPLAZ 13:27 | DX: B18.2 Chronic viral hepatitis C (principal) ==

== ENCOUNTER → 2018-09-12 | Outpatient (REF) | payer OTHER ==
[2018-09-12 16:40] LABS: ALBUMIN 3.7 GM/DL (3.2-5.2); ALBUMIN/GLOBULIN RATIO 1.06 (1.00-1.93); ALKALINE PHOSPHATASE 144 U/L (45-117); ALT/SGPT 123 U/L (12-78); AST/SGOT 60 U/L (7-37); BILIRUBIN,DIRECT < 0.1 MG/DL (0.0-0.2); BILIRUBIN,TOTAL 0.3 MG/DL (0.2-1.0); TOTAL PROTEIN 7.2 GM/DL (6.4-8.2)
[2018-09-15 10:15] LABS: HEPATITIS C QUANTITATION 758680 IU/mL (.)
== END ==
LOC: M SFHCPLAZ 13:10
DX: B18.2 Chronic viral hepatitis C (principal)

== ENCOUNTER → 2018-10-10 | Outpatient (REF) | payer OTHER ==
[2018-10-10 13:32] LABS: BASO % 0.4 % (0.0-1.0); EOS # 0.1 10^3/uL (0.0-0.50); EOS % 1.2 % (0.0-3.0); HEMATOCRIT 38.5 % (36.0-47.0); HEMOGLOBIN 12.9 g/dl (12.0-15.5); IMMATURE GRANULOCYTE % 0.4 % (0-3.0); LYMPH # 2.2 10^3/uL (1.5-4.5); LYMPH % 28.7 % (24.0-44.0); MEAN CORPUSCULAR HEMOGLOBIN 27.4 pg (27.0-33.0); MEAN CORPUSCULAR HGB CONC 33.5 g/dl (32.0-36.5); MEAN CORPUSCULAR VOLUME 81.7 fl (80.0-96.0); MONO # 0.5 10^3/uL (0.0-0.8); MONO % 6.8 % (0.0-5.0); NEUTROPHILS # 4.7 10^3/uL (1.8-7.7); NEUTROPHILS % 62.5 % (36.0-66.0); PLATELET COUNT, AUTOMATED 358 10^3/uL (150-450); RED BLOOD COUNT 4.71 10^6/uL (4.00-5.40); RED CELL DISTRIBUTION WIDTH 13.7 % (11.5-14.5); WHITE BLOOD COUNT 7.5 10^3/uL (4.0-10.0)
[2018-10-10 13:36] LABS: ALBUMIN 3.8 GM/DL (3.2-5.2); ALBUMIN/GLOBULIN RATIO 1.06 (1.00-1.93); ALKALINE PHOSPHATASE 157 U/L (45-117); ALT/SGPT 25 U/L (12-78); AST/SGOT 14 U/L (7-37); BILIRUBIN,DIRECT < 0.1 MG/DL (0.0-0.2); BILIRUBIN,TOTAL 0.1 MG/DL (0.2-1.0); TOTAL PROTEIN 7.4 GM/DL (6.4-8.2)
[2018-10-12 00:06] LABS: HEPATITIS C QUANTITATION HCV Not Detected IU/mL (.)
== END ==
LOC: M SFHCPLAZ 10:42
DX: B18.2 Chronic viral hepatitis C (principal)
CPT/HCPCS: 80076

== ENCOUNTER → 2018-12-12 | Outpatient (REF) | payer OTHER ==
[~2018-12-12] MED LIST changes: +ARIP5TA PO; +AUGM875T28 PO; +FLOM0.4C39 PO; +GABA-843 PO; +LEVA750T7 PO; +PERC5TAB12 PO; +VENL100T PO; +VENL37TA PO; +VITA50005 PO
[2018-12-12 12:09] LABS: BASO % 0.3 % (0.0-1.0); EOS # 0.1 10^3/uL (0.0-0.50); EOS % 2.3 % (0.0-3.0); HEMATOCRIT 41.1 % (36.0-47.0); HEMOGLOBIN 13.3 g/dl (12.0-15.5); LYMPH # 1.5 10^3/uL (1.5-4.5); LYMPH % 24.1 % (24.0-44.0); MEAN CORPUSCULAR HEMOGLOBIN 27.1 pg (27.0-33.0); MEAN CORPUSCULAR HGB CONC 32.4 g/dl (32.0-36.5); MEAN CORPUSCULAR VOLUME 83.7 fl (80.0-96.0); MONO # 0.6 10^3/uL (0.0-0.8); MONO % 9.1 % (0.0-5.0); NEUTROPHILS # 3.9 10^3/uL (1.8-7.7); NEUTROPHILS % 63.6 % (36.0-66.0); PLATELET COUNT, AUTOMATED 287 10^3/uL (150-450); RED BLOOD COUNT 4.91 10^6/uL (4.00-5.40); WHITE BLOOD COUNT 6.2 10^3/uL (4.0-10.0)
[2018-12-12 12:41] LABS: ALBUMIN 3.3 GM/DL (3.2-5.2); ALT/SGPT 24 U/L (12-78); BILIRUBIN,DIRECT < 0.1 MG/DL (0.0-0.2); BILIRUBIN,TOTAL 0.3 MG/DL (0.2-1.0)
[2018-12-15 18:42] LABS: HEPATITIS C QUANTITATION HCV Not Detected IU/mL (.)
== END ==
LOC: M SFHCPLAZ 10:03
PROVIDERS: ATTEND Internal Medicine Infectious Disease
DX: B18.2 Chronic viral hepatitis C (principal)

== ENCOUNTER → 2019-03-14 | Outpatient (REF) | payer OTHER ==
[~2019-03-14] MED LIST changes: +ARIP1TAB6 PO; -ARIP5TA PO
[2019-03-14 13:37] LABS: BASO % 0.5 % (0.0-1.0); EOS # 0.1 10^3/uL (0.0-0.50); EOS % 1.4 % (0.0-3.0); HEMATOCRIT 40.9 % (36.0-47.0); HEMOGLOBIN 13.9 g/dl (12.0-15.5); LYMPH # 2.5 10^3/uL (1.5-4.5); LYMPH % 28.1 % (24.0-44.0); MEAN CORPUSCULAR HEMOGLOBIN 28.1 pg (27.0-33.0); MEAN CORPUSCULAR VOLUME 82.8 fl (80.0-96.0); MONO # 0.7 10^3/uL (0.0-0.8); MONO % 7.6 % (0.0-5.0); NEUTROPHILS # 5.5 10^3/uL (1.8-7.7); NEUTROPHILS % 61.9 % (36.0-66.0); PLATELET COUNT, AUTOMATED 313 10^3/uL (150-450); RED BLOOD COUNT 4.94 10^6/uL (4.00-5.40); WHITE BLOOD COUNT 8.9 10^3/uL (4.0-10.0)
[2019-03-14 14:22] LABS: ALBUMIN 3.6 GM/DL (3.2-5.2); ALT/SGPT 31 U/L (12-78); BILIRUBIN,DIRECT < 0.1 MG/DL (0.0-0.2); BILIRUBIN,TOTAL 0.4 MG/DL (0.2-1.0); TOTAL PROTEIN 7.6 GM/DL (6.4-8.2)
[2019-03-16 14:14] LABS: HEPATITIS C QUANTITATION HCV Not Detected IU/mL (.)
== END ==
LOC: M SFHCPLAZ 11:10
PROVIDERS: ATTEND Internal Medicine Infectious Disease
DX: B18.2 Chronic viral hepatitis C (principal)

== ENCOUNTER → 2019-04-03 | Outpatient (REF) | payer OTHER ==
[2019-04-03 17:26] LABS: BASO % 0.3 % (0.0-1.0); EOS # 0.1 10^3/uL (0.0-0.50); EOS % 0.7 % (0.0-3.0); HEMATOCRIT 40.1 % (36.0-47.0); HEMOGLOBIN 13.4 g/dl (12.0-15.5); LYMPH # 1.6 10^3/uL (1.5-4.5); LYMPH % 21.6 % (24.0-44.0); MEAN CORPUSCULAR HEMOGLOBIN 28.1 pg (27.0-33.0); MEAN CORPUSCULAR HGB CONC 33.4 g/dl (32.0-36.5); MEAN CORPUSCULAR VOLUME 84.1 fl (80.0-96.0); MONO # 0.4 10^3/uL (0.0-0.8); MONO % 5.1 % (0.0-5.0); NEUTROPHILS # 5.4 10^3/uL (1.8-7.7); NEUTROPHILS % 71.8 % (36.0-66.0); PLATELET COUNT, AUTOMATED 325 10^3/uL (150-450); RED BLOOD COUNT 4.77 10^6/uL (4.00-5.40); WHITE BLOOD COUNT 7.5 10^3/uL (4.0-10.0)
[2019-04-03 17:57] LABS: ALT/SGPT 37 U/L (12-78); BILIRUBIN,TOTAL 0.4 MG/DL (0.2-1.0); BLOOD UREA NITROGEN 6 MG/DL (7-18); CALCIUM LEVEL 9.5 MG/DL (8.5-10.1); CARBON DIOXIDE LEVEL 23 MEQ/L (21-32); CHLORIDE LEVEL 108 MEQ/L (98-107); CHOLESTEROL LEVEL 256 MG/DL (<200); CHOLESTEROL RISK RATIO 6.564 (<5); CREATININE FOR GFR 0.85 MG/DL (0.55-1.30); GLOMERULAR FILTRATION RATE > 60.0 (>60); GLUCOSE, FASTING 81 MG/DL (70-100); HDL CHOLESTEROL 39 MG/DL (>40); LDL CHOLESTEROL 167 MG/DL (<100); NON-HDL-C 217 MG/DL; SODIUM LEVEL 142 MEQ/L (136-145); TOTAL PROTEIN 8.1 GM/DL (6.4-8.2); TRIGLYCERIDES LEVEL 251 MG/DL (<150)
[2019-04-04 07:05] LABS: HEMOGLOBIN A1c 5.4 %
== END ==
LOC: M SFHCCAPE 09:48
PROVIDERS: ATTEND Physician Assistant
DX: E66.01 Morbid (severe) obesity due to excess calories (principal)

== ENCOUNTER → 2019-12-06 | Outpatient (CLI) | payer OTHER ==
[~2019-12-06] MED LIST changes: +OMEP1CAP73 PO; -OMEP20CA3 PO
[2019-12-06 12:37] LABS: BASO % 0.4 % (0.0-1.0); HEMATOCRIT 39.7 % (36.0-47.0); HEMOGLOBIN 12.8 g/dl (12.0-15.5); LYMPH # 1.3 10^3/uL (1.5-5.0); LYMPH % 25.5 % (24.0-44.0); MEAN CORPUSCULAR HEMOGLOBIN 27.4 pg (27.0-33.0); MEAN CORPUSCULAR HGB CONC 32.2 g/dl (32.0-36.5); MEAN CORPUSCULAR VOLUME 84.8 fl (80.0-96.0); MONO # 0.5 10^3/uL (0.0-0.8); MONO % 8.9 % (0.0-5.0); NEUTROPHILS # 3.4 10^3/uL (1.5-8.5); NEUTROPHILS % 64.8 % (36.0-66.0); PLATELET COUNT, AUTOMATED 287 10^3/uL (150-450); RED BLOOD COUNT 4.68 10^6/uL (4.00-5.40); WHITE BLOOD COUNT 5.3 10^3/uL (4.0-10.0)
[2019-12-06 13:23] LABS: ALBUMIN 3.6 GM/DL (3.2-5.2); ALT/SGPT 29 U/L (12-78); BILIRUBIN,TOTAL 0.3 MG/DL (0.2-1.0); BLOOD UREA NITROGEN 16 MG/DL (7-18); CALCIUM LEVEL 9.1 MG/DL (8.5-10.1); CARBON DIOXIDE LEVEL 32 MEQ/L (21-32); CHLORIDE LEVEL 105 MEQ/L (98-107); CREATININE FOR GFR 0.87 MG/DL (0.55-1.30); GLOMERULAR FILTRATION RATE > 60.0 (>60); GLUCOSE, FASTING 91 MG/DL (70-100); HCG, SERUM QUANTITATIVE < 1.0 MIU/ML; SODIUM LEVEL 142 MEQ/L (136-145); TOTAL 25(OH) VITAMIN D 39.8 NG/ML (30.0-100.0); TOTAL PROTEIN 7.2 GM/DL (6.4-8.2)
[2019-12-06 13:30] LABS: HEPATITIS B SURFACE ANTIGEN NEGATIVE (NEGATIVE)
[2019-12-06 13:57] LABS: HEPATITIS B CORE ANTIBODY IGM NEGATIVE (NEGATIVE)
[2019-12-06 13:59] LABS: HIV 1&2 SCREEN CENTAUR NEGATIVE (NEGATIVE)
[2019-12-06 14:01] LABS: HEPATITIS A ANTIBODY IGM NEGATIVE (NEGATIVE)
[2019-12-06 14:04] LABS: HEPATITIS C VIRUS ABY INDEX 8.3 INDEX (<0.8)
== END ==
LOC: M LAB 11:33
PROVIDERS: ATTEND Nurse Practitioner Family
DX: F17.209 Nicotine dependence, unspecified, with unspecified nicotine-induced disorders (principal); R69 Illness, unspecified; F11.20 Opioid dependence, uncomplicated

== ENCOUNTER → 2019-12-21 | Outpatient (CLI) | payer MEDICAID | LOC: M OUTALCOH 08:14 | PROVIDERS: ATTEND Psychiatry & Neurology Addiction Medicine | DX: F14.20 Cocaine dependence, uncomplicated (principal); F15.20 Other stimulant dependence, uncomplicated; F11.20 Opioid dependence, uncomplicated ==

== ENCOUNTER 2019-12-26 10:06 | Outpatient (RCR) | payer MEDICAID | END 2019-12-30 | LOC: M OUTALCOH 10:06 | PROVIDERS: ATTEND Psychiatry & Neurology Addiction Medicine | DX: F14.20 Cocaine dependence, uncomplicated (principal); F11.20 Opioid dependence, uncomplicated; F15.20 Other stimulant dependence, uncomplicated ==

== ENCOUNTER 2020-01-29 12:47 | Outpatient (RCR) | payer MEDICAID | END 2020-01-30 | LOC: M OUTALCOH 12:47 | PROVIDERS: ATTEND Psychiatry & Neurology Addiction Medicine | DX: F14.20 Cocaine dependence, uncomplicated (principal); F11.20 Opioid dependence, uncomplicated; F15.20 Other stimulant dependence, uncomplicated ==

== ENCOUNTER 2020-02-28 13:53 | Outpatient (RCR) | payer MEDICAID ==
[~2020-02-28 13:53] MED LIST changes: +CYCL-707 PO; -CYCL10TA PO
== END 2020-02-29 ==
LOC: M OUTALCOH 13:53
PROVIDERS: ATTEND Psychiatry & Neurology Addiction Medicine
DX: F14.20 Cocaine dependence, uncomplicated (principal); F11.20 Opioid dependence, uncomplicated; F15.20 Other stimulant dependence, uncomplicated

== ENCOUNTER 2020-03-27 14:14 | Outpatient (RCR) | payer MEDICAID | END 2020-03-31 | LOC: M OUTALCOH 14:14 | PROVIDERS: ATTEND Psychiatry & Neurology Addiction Medicine | DX: F14.20 Cocaine dependence, uncomplicated (principal); F11.20 Opioid dependence, uncomplicated; F15.20 Other stimulant dependence, uncomplicated ==

== ENCOUNTER → 2020-04-23 | Outpatient (REF) | payer OTHER ==
[2020-04-23 18:38] LABS: BASO % 0.3 % (0.0-1.0); EOS # 0.1 10^3/uL (0.0-0.5); EOS % 1.9 % (0.0-3.0); HEMATOCRIT 35.3 % (36.0-47.0); HEMOGLOBIN 11.6 g/dl (12.0-15.5); LYMPH % 27.2 % (24.0-44.0); MEAN CORPUSCULAR HEMOGLOBIN 26.9 pg (27.0-33.0); MEAN CORPUSCULAR HGB CONC 32.9 g/dl (32.0-36.5); MEAN CORPUSCULAR VOLUME 81.7 fl (80.0-96.0); MONO # 0.4 10^3/uL (0.0-0.8); MONO % 5.2 % (0.0-5.0); NEUTROPHILS # 4.9 10^3/uL (1.5-8.5); PLATELET COUNT, AUTOMATED 301 10^3/uL (150-450); RED BLOOD COUNT 4.32 10^6/uL (4.00-5.40); WHITE BLOOD COUNT 7.5 10^3/uL (4.0-10.0)
[2020-04-23 18:51] LABS: FREE T4 1.07 NG/DL (0.76-1.46)
[2020-04-23 21:56] LABS: CHLAMYDIA DNA AMPLIFICATION NEGATIVE (NEGATIVE); GC DNA AMPLIFICATION NEGATIVE (NEGATIVE)
[2020-04-24 08:46] LABS: FOLLICLE STIMULATING HORMONE 0.5 mIU/mL; LUTEINIZING HORMONE < 0.1 mIU/mL
== END ==
LOC: M PLALAB 14:08
PROVIDERS: ATTEND Nurse Practitioner Women's Health
DX: R23.2 Flushing (principal)

== ENCOUNTER → 2020-04-30 | Outpatient (RCR) | payer MEDICAID | LOC: M OUTALCOH 04-01 10:17 | PROVIDERS: ATTEND Psychiatry & Neurology Addiction Medicine | DX: F14.20 Cocaine dependence, uncomplicated (principal); F11.20 Opioid dependence, uncomplicated; F15.20 Other stimulant dependence, uncomplicated ==

== ENCOUNTER → 2020-05-31 | Outpatient (RCR) | payer MEDICAID | LOC: M OUTALCOH 05-07 13:07 | PROVIDERS: ATTEND Psychiatry & Neurology Addiction Medicine | DX: F14.20 Cocaine dependence, uncomplicated (principal); F11.20 Opioid dependence, uncomplicated; F15.20 Other stimulant dependence, uncomplicated ==

== ENCOUNTER → 2020-07-01 | Outpatient (RCR) | payer MEDICAID | LOC: M OUTALCOH 06-10 16:00 | PROVIDERS: ATTEND Psychiatry & Neurology Addiction Medicine | DX: F14.20 Cocaine dependence, uncomplicated (principal); F11.20 Opioid dependence, uncomplicated; F15.20 Other stimulant dependence, uncomplicated ==

== ENCOUNTER 2020-07-29 14:21 | Outpatient (RCR) | payer MEDICAID | END 2020-07-31 | LOC: M OUTALCOH 14:21 | PROVIDERS: ATTEND Psychiatry & Neurology Addiction Medicine | DX: F14.20 Cocaine dependence, uncomplicated (principal); F11.20 Opioid dependence, uncomplicated; F15.20 Other stimulant dependence, uncomplicated ==

== ENCOUNTER 2020-08-21 13:02 | Outpatient (RCR) | payer MEDICAID | END 2020-08-31 | LOC: M OUTALCOH 13:02 | PROVIDERS: ATTEND Psychiatry & Neurology Addiction Medicine | DX: F14.20 Cocaine dependence, uncomplicated (principal); F11.20 Opioid dependence, uncomplicated; F15.20 Other stimulant dependence, uncomplicated ==

== ENCOUNTER → 2022-06-23 | Outpatient (REF) | payer OTHER ==
[~2022-06-23] MED LIST changes: +GABA-282 PO; -GABA-843 PO
[2022-06-23 17:56] LABS: BASO % 0.3 % (0.0-1.0); EOS # 0.1 10^3/uL (0.0-0.5); EOS % 1.8 % (0.0-3.0); HEMATOCRIT 36.8 % (36.0-47.0); LYMPH # 1.2 10^3/uL (1.5-5.0); LYMPH % 19.3 % (24.0-44.0); MEAN CORPUSCULAR HEMOGLOBIN 27.9 pg (27.0-33.0); MEAN CORPUSCULAR HGB CONC 32.6 g/dl (32.0-36.5); MEAN CORPUSCULAR VOLUME 85.6 fl (80.0-96.0); MONO # 0.4 10^3/uL (0.0-0.8); MONO % 6.4 % (2.0-8.0); NEUTROPHILS # 4.4 10^3/uL (1.5-8.5); NEUTROPHILS % 71.9 % (36.0-66.0); PLATELET COUNT, AUTOMATED 244 10^3/uL (150-450); WHITE BLOOD COUNT 6.1 10^3/uL (4.0-10.0)
[2022-06-23 18:17] LABS: HEMOGLOBIN A1c 5.6 %
[2022-06-23 18:42] LABS: ALBUMIN 3.4 GM/DL (3.2-5.2); ALT/SGPT 33 U/L (12-78); BILIRUBIN,TOTAL 0.3 MG/DL (0.2-1.0); BLOOD UREA NITROGEN 11 MG/DL (7-18); CALCIUM LEVEL 9.1 MG/DL (8.5-10.1); CARBON DIOXIDE LEVEL 29 MEQ/L (21-32); CHLORIDE LEVEL 107 MEQ/L (98-107); CHOLESTEROL LEVEL 271 MG/DL (<200); CHOLESTEROL RISK RATIO 5.891 (<5); CREATININE FOR GFR 0.78 MG/DL (0.55-1.30); GLOMERULAR FILTRATION RATE > 60.0 (>58); GLUCOSE, FASTING 96 MG/DL (70-100); HDL CHOLESTEROL 46 MG/DL (>40); LDL CHOLESTEROL 201 MG/DL (<100); NON-HDL-C 225 MG/DL; POTASSIUM SERUM 4.2 MEQ/L (3.5-5.1); SODIUM LEVEL 141 MEQ/L (136-145); THYROID STIMULATING HORMONE 0.849 uIU/ML (0.358-3.740); TOTAL PROTEIN 6.8 GM/DL (6.4-8.2); TRIGLYCERIDES LEVEL 120 MG/DL (<150)
== END ==
LOC: M SFHCCLAY 13:47
PROVIDERS: ATTEND Nurse Practitioner Family
DX: K21.9 Gastro-esophageal reflux disease without esophagitis (principal); F19.10 Other psychoactive substance abuse, uncomplicated; E66.09 Other obesity due to excess calories; Z68.38 Body mass index [BMI] 38.0-38.9, adult

== ENCOUNTER → 2023-05-03 | Outpatient (REF) | payer OTHER ==
[2023-05-03 17:39] LABS: BASO % 0.4 % (0.0-1.0); EOS # 0.1 10^3/uL (0.0-0.5); EOS % 2.1 % (0.0-3.0); HEMATOCRIT 37.3 % (36.0-47.0); HEMOGLOBIN 11.9 g/dl (12.0-15.5); LYMPH # 1.1 10^3/uL (1.5-5.0); LYMPH % 20.3 % (24.0-44.0); MEAN CORPUSCULAR HEMOGLOBIN 25.8 pg (27.0-33.0); MEAN CORPUSCULAR HGB CONC 31.9 g/dl (32.0-36.5); MEAN CORPUSCULAR VOLUME 80.7 fl (80.0-96.0); MONO # 0.3 10^3/uL (0.0-0.8); MONO % 5.6 % (2.0-8.0); NEUTROPHILS # 3.7 10^3/uL (1.5-8.5); NEUTROPHILS % 71.4 % (36.0-66.0); PLATELET COUNT, AUTOMATED 264 10^3/uL (150-450); RED BLOOD COUNT 4.62 10^6/uL (4.00-5.40); WHITE BLOOD COUNT 5.2 10^3/uL (4.0-10.0)
[2023-05-03 18:03] LABS: ALBUMIN 3.7 G/DL (3.2-5.2); ALKALINE PHOSPHATASE 120 U/L (46-116); ALT/SGPT < 9 U/L (7.0-40); AST/SGOT < 8 U/L (<34); BILIRUBIN,TOTAL 0.4 MG/DL (0.3-1.2); BLOOD UREA NITROGEN 9 MG/DL (9-23); CALCIUM LEVEL 8.9 MG/DL (8.5-10.1); CARBON DIOXIDE LEVEL 30 MMOL/L (20-31); CHLORIDE LEVEL 105 MMOL/L (98-107); CHOLESTEROL LEVEL 188 MG/DL (<200); CHOLESTEROL RISK RATIO 4.53 (<5); CREATININE FOR GFR 0.83 MG/DL (0.55-1.30); GLOMERULAR FILTRATION RATE > 60.0 (>58); GLUCOSE, FASTING 86 MG/DL (60-100); HDL CHOLESTEROL 41.5 MG/DL (>40); LDL CHOLESTEROL 125.1 MG/DL (<100); NON-HDL-C 146.5 MG/DL; POTASSIUM SERUM 4.3 MMOL/L (3.5-5.1); SODIUM LEVEL 141 MMOL/L (136-145); TOTAL PROTEIN 6.5 G/DL (5.7-8.2); TRIGLYCERIDES LEVEL 107 MG/DL (<150)
[2023-05-03 18:05] LABS: THYROID STIMULATING HORMONE 1.063 uIU/ML (0.55-4.78)
[2023-05-03 18:13] LABS: CREATININE, URINE 299.9 MG/DL; CREATININE,RANDOM URINE 299.9 MG/DL; MAU/CREAT RATIO 1.6 MCG/MG (0.0-30.0)
[2023-05-03 18:17] LABS: HEPATITIS B SURFACE ANTIGEN NEGATIVE (NEGATIVE)
[2023-05-03 18:37] LABS: HEPATITIS B CORE ANTIBODY IGM NEGATIVE (NEGATIVE)
[2023-05-03 18:39] LABS: HEPATITIS C VIRUS ABY INDEX 1.68 INDEX (<0.8)
[2023-05-03 18:46] LABS: HEMOGLOBIN A1c 5.5 % (4.0-6.0)
[2023-05-06 20:07] LABS: HEPATITIS C QUANTITATION HCV Not Detected IU/mL (.)
[2023-05-10 09:23] LABS: IRON (FE) 50 UG/DL (50-170); PERCENT SATURATION 11.8 % (13.2-45.0); TOTAL IRON BINDING CAPACITY 424 UG/DL (250-425)
[2023-05-10 09:25] LABS: FOLATE 7.5 NG/ML (>5.4)
[2023-05-10 09:26] LABS: VITAMIN B12 LEVEL 376 PG/ML (211-911)
== END ==
LOC: M LABDRAWC 16:56
PROVIDERS: ATTEND Nurse Practitioner
DX: B18.2 Chronic viral hepatitis C (principal); D50.9 Iron deficiency anemia, unspecified

== ENCOUNTER → 2023-07-21 | Outpatient (CLI) | payer OTHER | LOC: M CLY 15:38 | PROVIDERS: ATTEND Nurse Practitioner | DX: M26.629 Arthralgia of temporomandibular joint, unspecified side (principal) ==

== ENCOUNTER → 2023-08-02 | Outpatient (REF) | payer OTHER | LOC: M SFHCCLAY 11:21 | PROVIDERS: ATTEND Physician Assistant | DX: R30.0 Dysuria (principal) ==

== ENCOUNTER → 2024-05-03 | Outpatient (REF) | payer OTHER ==
[2024-05-09 13:41] LABS: HPV APTIMA Not Detected (Not Detected)
== END ==
LOC: M SFHCWAGY 10:16
PROVIDERS: ATTEND Nurse Practitioner Family
DX: Z12.4 Encounter for screening for malignant neoplasm of cervix (principal)